=== PATIENT | female | born 1945 | race Caucasian/White ===

== ENCOUNTER → 2017-05-22 | Outpatient (CLI) | payer MEDICARE | END | disposition home or self-care (01) | LOC: CFH 11:28 | PROVIDERS: ATTEND Family Medicine | DX: Z13.820 Encounter for screening for osteoporosis (principal); M85.89 Other specified disorders of bone density and structure, multiple sites | CPT/HCPCS: 77080 ==

== ENCOUNTER 2019-01-18 08:56 | Day surgery (SDC) | payer MEDICARE, OTHER ==
[~2019-01-18] VITALS: Ht 162.6 cm; Wt 78.0 kg
[2019-01-18 09:54] LABS: BASOPHILS # (AUTO) 0.03 x10^3/uL (0-0.1); BASOPHILS % (AUTO) 1 % (0-1); EOSINOPHILS # (AUTO) 0.15 x10^3/uL (0-0.4); EOSINOPHILS % (AUTO) 3 % (1-7); LYMPHOCYTES # (AUTO) 1.19 x10^3/uL (1-3.4); LYMPHOCYTES % (AUTO) 21 % (22-44); MD NO; MEAN CORPUSCULAR HEMOGLOBIN 30.1 pg (27.0-34.8); MEAN CORPUSCULAR HGB CONC 32.6 g/dL (32.4-35.8); MEAN CORPUSCULAR VOLUME 92.3 fL (80-100); MEAN PLATELET VOLUME 9.8 fL (7.4-10.4); MONOCYTES # (AUTO) 0.47 x10^3/uL (0.2-0.8); MONOCYTES % (AUTO) 8 % (2-9); NEUTROPHILS # (AUTO) 3.89 x10^3/uL (1.8-6.8); NEUTROPHILS % (AUTO) 68 % (42-75); PLATELET COUNT 183 x10^3/uL (130-400); RED BLOOD COUNT 4.84 x10^6/uL (3.82-5.3)
[2019-01-18 10:03] LABS: ALANINE AMINOTRANSFERASE 44 U/L (12-78); ALBUMIN 3.7 g/dL (3.4-5.0); ANION GAP 6 mmol/L (5-15); CALCIUM 9.6 mg/dL (8.5-10.1); CHLORIDE 113 mmol/L (98-107); CREATININE 1.03 mg/dL (0.55-1.02)
[2019-01-18 10:05] LABS: ALKALINE PHOSPHATASE 90 U/L (45-117); BILIRUBIN,TOTAL 0.4 mg/dL (0.2-1.0); TOTAL PROTEIN 7.6 g/dL (6.4-8.2)
[2019-01-18 10:20] VITALS: BP 129/70
[2019-01-18] MEDS ORDERED: FENTANYL PF 250 MCG/5ML ONE (10:53)
[2019-01-18] MEDS ORDERED: MIDAZOLAM 1 MG/ML, 2ML ONE (10:53)
[2019-01-18] MEDS ORDERED: SODIUM CHLORIDE 0.9% PF 10ML ONE (10:54)
[2019-01-18] MEDS ORDERED: CEFAZOLIN 1,000 MG ONE ×2 (10:54)
[2019-01-18] MEDS ORDERED: PROPOFOL 10 MG/ML, 20ML ONE (10:55)
[2019-01-18] MEDS ORDERED: OMEG1CAP6 PO (10:57)
[2019-01-18] MEDS ORDERED: STERILE WATER BLADIN ONE (12:00)
[2019-01-18] MEDS ORDERED: PROMETHAZINE 25 MG/ML, 1ML IV PRN (12:00)
[2019-01-18] MEDS ORDERED: HYDROmorphone 2 MG/ML, 1ML IVPush PRN (12:00)
[2019-01-18] MEDS ORDERED: LABETALOL 5MG/ML, 20ML IV PRN (12:00)
[2019-01-18] MEDS ORDERED: FENTANYL PF 100 MCG/2ML IV PRN (12:00)
[2019-01-18] MEDS ORDERED: hydrALAzine 20 MG/ML, 1ML IV PRN (12:00)
[2019-01-18] MEDS ORDERED: HALOPERIDOL 5 MG/ML IV PRN (12:00)
[2019-01-18] MEDS ORDERED: ONDANSETRON 2MG/ML, 2ML IV PRN (12:00)
[2019-01-18] MEDS ORDERED: ONDANSETRON ODT 8 MG PO PRN (12:00)
[2019-01-18] MEDS ORDERED: PROMETHAZINE 25 MG SUPP PR PRN (12:00)
[2019-01-18] MEDS ORDERED: MORPHINE SULFATE 4 MG/ML, 1ML IVPush PRN (12:00)
[2019-01-18] MEDS ORDERED: OXYcodone 5 MG/5 ML ORAL.SOL UDC PO PRN (12:00)
[2019-01-18] MEDS ORDERED: PROMETHAZINE 25 MG/ML, 1ML IM PRN ×2 (12:00)
[2019-01-18] MEDS ORDERED: PROMETHAZINE 12.5 MG SUPP PR PRN (12:00)
[2019-01-18] MEDS ORDERED: GEMCITABINE HCL BLADIN ONE (12:00)
[2019-01-18] MEDS ORDERED: ACETAMINOPHEN 325 MG TABLET PO PRN (12:00)
[2019-01-18] MEDS ORDERED: MEPERIDINE/PF 25MG/0.5ML IVPush PRN (12:00)
[2019-01-18] MEDS ORDERED: ONDANSETRON 2MG/ML, 2ML ONE (12:22)
[2019-01-18] MEDS ORDERED: DEXAMETHASONE 4 MG/ML, 1ML ONE ×3 (12:22)
[2019-01-18] MEDS ORDERED: OPIUM/BELLADONNA SUPP.RECT 16.2-60 MG ONE (12:42)
[2019-01-18] MEDS ORDERED: PHENAZOPYRIDINE 200 MG TABLET ONE (13:25)
[2019-01-18] MEDS ORDERED: FENTANYL PF 100 MCG/2ML ONE (13:27)
[2019-01-18] MEDS ORDERED: OXYcodone 5 MG/5 ML ORAL.SOL UDC ONE (13:28)
[2019-01-18] MEDS ORDERED: PHENAZOPYRIDINE 200 MG TABLET PO ONE (14:00)
[2019-01-18 14:35] VITALS: BP 151/75
[2019-01-18] MEDS ORDERED: CHOL400C PO (15:29)
[2019-01-18] MEDS ORDERED: LUTE1BEA PO (15:29)
[2019-01-18] MEDS ORDERED: CALC-118 PO (15:29)
[2019-01-18] MEDS ORDERED: HYDR-3240 PO (16:25)
[2019-01-18] MEDS ORDERED: PHEN-418 PO (16:26)
== END 2019-01-18 17:30 | disposition home or self-care (01) ==
LOC: OR 08:56 → 4NOR 08:57 → OR 17:30
PROVIDERS: ATTEND Urology
DX: C67.9 Malignant neoplasm of bladder, unspecified (principal); Z72.89 Other problems related to lifestyle
CPT/HCPCS: 36415; 51720; 52235; 80053; 85025; 88307; 93005; J0690; J1100; J2250; J2405; J2704; J3010; J9201; G0378

== ENCOUNTER 2020-02-18 06:59 | Day surgery (SDC) | payer MEDICARE, OTHER ==
[2020-02-17 14:11] VITALS: BP 143/82
[~2020-02-18] VITALS: Ht 162.6 cm; Wt 75.0 kg
[~2020-02-18 06:59] MED LIST: CALC-118 PO; CHOL400C PO; CYCL-259 PO; HYDR-3240 PO; LUTE1BEA PO; MELA PO; NITR100C6 PO; OMEG1CAP6 PO; PHEN-418 PO; POLY10DR3 EACHEYE; SUPER K PO; TURM500C4 PO; ZOLP5TAB6 PO
[2020-02-18] MEDS ORDERED: PROMETHAZINE 25 MG/ML, 1ML IVPush PRN (07:30)
[2020-02-18] MEDS ORDERED: HYDROmorphone 1 MG/ML, 1ML INJ IVPush PRN (07:30)
[2020-02-18] MEDS ORDERED: ONDANSETRON 2MG/ML, 2ML IVPush PRN (07:30)
[2020-02-18] MEDS ORDERED: EPHEDRINE 50 MG/ML, 1ML IVPush PRN (07:30)
[2020-02-18] MEDS ORDERED: LABETALOL 5MG/ML, 20ML IV PRN (07:30)
[2020-02-18] MEDS ORDERED: OXYcodone 5 MG/5 ML ORAL.SOL UDC PO PRN (07:30)
[2020-02-18] MEDS ORDERED: MEPERIDINE/PF 25MG/0.5ML IVPush PRN (07:30)
[2020-02-18] MEDS ORDERED: hydrALAzine 20 MG/ML, 1ML IV PRN (07:30)
[2020-02-18] MEDS ORDERED: LACTATED RINGERS 1,000 ML IV SCH (07:32)
[2020-02-18 07:37] VITALS: BP 143/82
[2020-02-18] MEDS ORDERED: CHLORHEXIDINE 15 ML UDC MM ONE (08:00)
[2020-02-18] MEDS ORDERED: ACETAMINOPHEN 500 MG TABLET PO ONE (08:00)
[2020-02-18] MEDS ORDERED: FENTANYL PF 100 MCG/2ML ONE ×2 (08:26→09:51)
[2020-02-18] MEDS ORDERED: CEFAZOLIN 1,000 MG ONE ×2 (08:27)
[2020-02-18] MEDS ORDERED: DEXAMETHASONE 4 MG/ML, 1ML ONE ×2 (08:27)
[2020-02-18] MEDS ORDERED: PROPOFOL 10 MG/ML, 20ML ONE (08:27)
[2020-02-18] MEDS ORDERED: SODIUM CHLORIDE 0.9% PF 10ML ONE (08:27)
[2020-02-18] MEDS ORDERED: LIDOCAINE-MPF 2% ,5ML ONE (08:27)
[2020-02-18] MEDS ORDERED: GEMCITABINE HCL IS ONE (08:30)
[2020-02-18] MEDS ORDERED: ONDANSETRON 2MG/ML, 2ML ONE (08:32)
[2020-02-18] MEDS ORDERED: PHENAZOPYRIDINE 200 MG TABLET ONE (09:40)
[2020-02-18] MEDS: FENTANYL PF 100 MCG/2ML IV PRN ×3 (09:53→10:21)
[2020-02-18] MEDS ORDERED: PHENAZOPYRIDINE 200 MG TABLET PO ONE (10:00)
== END 2020-02-18 11:30 | disposition home or self-care (01) ==
LOC: OUT 06:59
PROVIDERS: ATTEND Urology
DX: C67.2 Malignant neoplasm of lateral wall of bladder (principal); Z11.59 Encounter for screening for other viral diseases; R31.9 Hematuria, unspecified; M19.90 Unspecified osteoarthritis, unspecified site; Z79.899 Other long term (current) drug therapy; Z72.89 Other problems related to lifestyle; Z98.890 Other specified postprocedural states; Z82.49 Family history of ischemic heart disease and other diseases of the circulatory system
CPT/HCPCS: 36415; 52234; 52332; 52351; 74018; 87635; 88305; 93005; C1726; C1769; C2617; J0690; J1100; J2405; J2704; J3010; 76000